=== PATIENT | male | born 2000 | race Caucasian/White ===

== ENCOUNTER 2022-05-25 01:46 | Emergency (ER) | payer BC, SELFPAY ==
[2022-05-25 01:52] VITALS: BP 131/62; PULSE 100; RESP 22; TEMP 36.3; O2SAT 100
--- NOTE | 2022-05-25 02:14 | PC.NURSE ---
Pt states does not wish to stay, will go home and go to bed. Instructed to return if worsening of pain.
== END 2022-05-25 02:14 | disposition left against medical advice (07) ==
PROVIDERS: PCP Pediatrics
DX: M54.50 Low back pain, unspecified (principal)
CPT/HCPCS: 99199